=== PATIENT | male | born 1940 | race Hispanic/Latino ===

== ENCOUNTER 2021-12-27 21:14 | Emergency (ER) | payer MEDICARE ==
[~2021-12-27] VITALS: Ht 177.8 cm; Wt 81.6 kg
[2021-12-27] MEDS ORDERED: TETRACAINE HCL 0.5% OPTH SOLN 4 ML BTL ONE (21:47)
[2021-12-27] MEDS ORDERED: EYE IRRIGATION (OPTH) 120 ML BTL ONE (21:47)
[2021-12-27] MEDS ORDERED: FLUORESCEIN SOD(OPTH) 1 MG STRP ONE (21:47)
== END 2021-12-27 21:56 | disposition home or self-care (01) ==
LOC: ER 21:20
DX: T15.91XA Foreign body on external eye, part unspecified, right eye, initial encounter (principal); I10 Essential (primary) hypertension; E11.9 Type 2 diabetes mellitus without complications
CPT/HCPCS: 99283